=== PATIENT | female | born 1950 | race African-American/Black ===

== ENCOUNTER 2021-04-05 06:43 | Inpatient (IN) | payer MEDICARE ==
[~2021-04-05] VITALS: Ht 180.3 cm; Wt 84.2 kg
[2021-04-05 06:46] VITALS: BP 155/72
[2021-04-05 08:02] LABS: ABSOLUTE NEUTROPHILS 6.1 thou/uL (1.4-8.2); BASOPHILS 0.2 % (0.0-2.0); HEMATOCRIT 35.2 % (37.0-47.0); HEMOGLOBIN 11.8 gm/dL (12.0-15.0); LYMPHOCYTES 11.2 % (24.0-44.0); MCH 30.3 pg (26.0-34.0); MCHC 33.4 g/dL (28.0-37.0); MCV 90.7 fL (80.0-100.0); MONOCYTES 7.8 % (1.0-8.0); PLATELET COUNT 221 thou/uL (150-400); POLYS 80.8 % (36.0-66.0); RBC 3.88 mil/uL (4.20-5.00); RDW 13.7 % (10.5-14.5); WBC 7.5 thou/uL (4.0-11.0)
[2021-04-05 08:03] LABS: CALCIUM 8.7 mg/dL (8.5-10.1); CREATININE 2.2 mg/dL (0.6-1.0); POTASSIUM 3.8 mmol/L (3.5-5.1)
[2021-04-05 08:06] LABS: APTT 28.5 Seconds (24.5-32.8); PROTIME 10.9 Seconds (10.5-12.1)
[2021-04-05 08:16] LABS: ALBUMIN 2.8 g/dL (3.4-5.0); TOTAL BILIRUBIN 0.6 mg/dL (0.2-1.0); TOTAL PROTEIN 8.7 g/dL (6.4-8.2)
[2021-04-05 08:39] LABS: URINE BILIRUBIN NEGATIVE (Negative); URINE BLOOD 3+ (Negative); URINE CLARITY CLEAR; URINE COLOR YELLOW; URINE GLUCOSE-RANDOM* TRACE (Negative); URINE KETONES TRACE (Negative); URINE NITRITE-REFLEX NEGATIVE (Negative); URINE PROTEIN (DIPSTICK) 2+ (Negative); URINE SPECIFIC GRAVITY 1.025 (1.005-1.035); URINE UROBILINOGEN 0.2 E.U./dl (0.2-1.0)
[2021-04-05 08:41] LABS: URINE LEUKOCYTES-REFLEX 1+ (Negative)
[2021-04-05] MEDS ORDERED: JANUMET XR 50-1 EACH PO (08:46)
[2021-04-05] MEDS ORDERED: LANTUS SUBQ (08:46)
[2021-04-05] MEDS ORDERED: LOSARTAN-HCTZ1 EAC3 PO (08:47)
[2021-04-05] MEDS ORDERED: ZYRTEC10 M2 PO (08:48)
[2021-04-05] MEDS ORDERED: MELOXICAM15 MG PO (08:48)
[2021-04-05 08:54] LABS: SQUAMOUS 4-10 Moderate /LPF (0-3)
[2021-04-05 08:55] LABS: BACTERIA-REFLEX 1-9 Few /HPF (None Seen); CRYSTALS None Seen /LPF (None Seen); URINE RBC >20 Many /HPF (NONE SEEN); URINE WBC-REFLEX 6-15 Few /HPF (0-5)
[2021-04-05 11:11] VITALS: BP 140/77
[2021-04-05 11:36] VITALS: BP 161/94
[2021-04-05 12:01] VITALS: BP 159/79
--- NOTE | 2021-04-05 14:39 | NUR ---
WOUND CONSULT; THE PATIENT HAS FEET/LE'S THAT ARE OF CONCERN. THE PATIENT FEET ARE COOL, DRY AND HAVE S/S CONSISTANT WITH A POSSIBLE VASCULAR PROBLEMS. THE FEET ARE TENDER TO THE PATIENT. RECOMMENDATIONS; -CONSULT DR MAIN FOR A WOUND CARE EVALUATION. -USE DRY GAUZE/KERLIX FOR NOW. RN PRESENT.
[2021-04-05 15:32] VITALS: BP 137/57
[2021-04-05 19:33] VITALS: BP 135/66
--- NOTE | 2021-04-05 20:05 | NUR ---
PT ARRIVED VIA CART FROM ER. ADMISSION COMPLETED, CARE PLAN IN PLACE, AND INTERVENTIONS SET. WOUND CARE CONSULT PLACED, PICTURES TAKE OF ANKLES. PRATHO BOOTS ORDERED. POC WITH ACCU CHECK, 02 AT 2L, COVID POC. PT USES WHEEL CHAIR AT REHAB AND AT HOME.
[2021-04-06 00:12] VITALS: BP 123/53
[2021-04-06 05:09] VITALS: BP 145/87
[2021-04-06 05:21] LABS: ALBUMIN 2.6 g/dL (3.4-5.0); CALCIUM 8.4 mg/dL (8.5-10.1); CREATININE 2.3 mg/dL (0.6-1.0); DIRECT BILIRUBIN 0.2 mg/dL (<0.1-0.2); PHOSPHORUS 3.8 mg/dL (2.5-4.9); POTASSIUM 4.1 mmol/L (3.5-5.1); TOTAL BILIRUBIN 0.3 mg/dL (0.2-1.0); TOTAL PROTEIN 7.7 g/dL (6.4-8.2)
[2021-04-06 08:04] VITALS: BP 134/59
[2021-04-06 15:08] LABS: GLOBULIN TOTAL 5.3 g/dL (2.2-3.9); M-SPIKE Not Observed g/dL (Not Observed)
--- NOTE | 2021-04-06 15:37 | NUR ---
INITIAL ASSESSMENT: Received consult. Reviewed chart and spoke with nursing and attending physician. Pt was admitted from [facility] due to COVID. Pt placed in Enhanced Isolation. Pt has not received a COVID vaccination. Pt is afebrile and on 2L of O2. Pt is on IV abx and IV steroids. YESENIA placed call to pt's room. No answer. YESENIA spoke with pt's dtr, Lizz, via phone. Introduced role of YESENIA. Pt is currently in LTC at [facility]. Pt was hospitalized 2 months ago and then sent to [facility] as skilled. Pt has transitioned to LTC. Pt's dtr is interested in having pt go home with her upon discharge if she is able to d/c home with HH. PT/OT evals ordered to determine discharge needs. Pt was living at home prior to her hospitalization earlier this year. Pt's PCP is Dr. Oliva Dempsey at the [facility]. Pt has not been ambulatory since being at [facility]. YESENIA faxed info to [facility] post acute liaison for review. YESENIA is following to assist as needed with discharge planning.
[2021-04-06 15:38] VITALS: BP 129/74
--- NOTE | 2021-04-06 19:09 | NUR ---
ASSUMED PATIENT CARE AT 0700. ALERT. TOLERATED ON RA. VSS. POOR APPATITE. NOT TOWARDS POC GOALS.
[2021-04-06 20:24] VITALS: BP 131/70
--- NOTE | 2021-04-07 00:09 | NUR ---
PT ALERT AND ORIENTED X1. CONFUSED . FOLLOWS SOME COMMANDS. MAINLY QUIET. VSS. INC OF URINE IN LG AMTS. ZGARD APPLIED. PT NONCOMLIANT WITH LEAVING EXTERNAL CATHETER INTACT. PT ASSISTS NS WITH TURNING RIGHT AND LEFT IN BED. BED DOWN . CALL LIGHT IN REACH. BED ALARM IS ON. NO S/S DISTRESSON RA PRESENTLY.
[2021-04-07 04:17] VITALS: BP 119/69
[2021-04-07 05:16] LABS: ALBUMIN 2.7 g/dL (3.4-5.0); CALCIUM 8.7 mg/dL (8.5-10.1); CREATININE 2.3 mg/dL (0.6-1.0); PHOSPHORUS 4.7 mg/dL (2.5-4.9); POTASSIUM 4.5 mmol/L (3.5-5.1)
--- NOTE | 2021-04-07 06:32 | NUR ---
PT RESTING QUIETLY. NO C/O PAIN. NO S/S DISTRESS. THIS AM SAT WAS 90% ON RA. PT WAS PLACED ON 2LNC. ZGARD APLLIED TO PERIAND BUTTOCKS. PT INC OF URINEIN LG AMTS.
[2021-04-07 07:26] VITALS: BP 147/66
--- NOTE | 2021-04-07 09:25 | HC ---
[facility] [place] [address] [place] [address] CONSULTATION Name: MARCELO MURPHY Room #: 358-P ADM IN M.R.#: [id number] Admission: 04/05/21 Attend Phys: Tristan Fragoso Discharge: Date of : 54 Report #: [id number] THIS REPORT FOR: cc: Sukumar Gonsalez MD, Shyam MD Barry, Joseph W. MD ~ DATE OF SERVICE: 04/05/2021 INFECTIOUS DISEASE CONSULTATION ATTENDING PHYSICIAN: Dr. Fragoso. REASON FOR EVALUATION: COVID-19 infection, complicated by pneumonitis, respiratory failure. HISTORY OF PRESENT ILLNESS: Chart reviewed. The patient examined. This is a 70-year-old woman with diabetes mellitus, hypertension, who was transferred from facility and had been hospitalized, was there for rehabilitation, was found to have a positive COVID test. She became more dyspneic with a cough productive of whitish sputum. Noted also apparently had an episode of coffee-ground emesis earlier in the day. Chest x-ray noted bilateral infiltrates. Urinalysis did show moderate pyuria, so empirically started on therapy with levofloxacin. ALLERGIES: None known. CURRENT MEDICATIONS: Include insulin, Klor-Con, dexamethasone, enoxaparin, Levaquin, famotidine, ondansetron. PAST MEDICAL HISTORY: Includes diabetes mellitus, hypertension, has lower extremity venous stasis insufficiency complicated by ulcers due to peripheral vascular disease as well, chronic renal insufficiency, anemia, arthritis, sleep apnea. SOCIAL HISTORY: Nonsmoker, no ethanol, no illicit drug use. FAMILY HISTORY: Noncontributory. REVIEW OF SYSTEMS: Otherwise, unremarkable. PHYSICAL EXAMINATION: GENERAL: She appears chronically ill. She is mildly confused, in moderate distress. VITAL SIGNS: Temperature 98.9, pulse 97, respirations 20, blood pressure 159/79. SKIN: Warm, dry, no rashes. HEENT: Normocephalic. Extraocular muscles intact. Face hirsute. [address] [address] CONSULTATION Name: MARCELO MURPHY Room #: 358-[facility] IN M.R.#: [id number] Admission: 04/05/21 Attend Phys: Tristan Fragoso Discharge: Date of : 54 Report #: [id number] NECK: Supple. Nasal cannula in place. LUNGS: Scattered coarse breath sounds. HEART: Borderline tachycardic, regular with some ectopy. I do not appreciate a murmur. ABDOMEN: Mildly distended, somewhat firm, nontender. EXTREMITIES: No cyanosis. GENITOURINARY AND RECTAL: Deferred. LABORATORY DATA: Urinalysis as described above, 6-15 white cells. Electrolytes: Sodium 146, potassium 3.8, chloride 105, bicarbonate is 25, anion gap of 16, BUN and creatinine 62 and 2.2, glucose of 305. AST 42, ALT of 31, albumin of 2.8, total protein of 8.7. CBC: White count of 7.5, H and H of 11.8 and 35.2, platelets of 221. Chest x-ray as described above. ASSESSMENT AND PLAN: 1. COVID-19 infection, complicated by pneumonitis, respiratory failure. 2. Diabetes mellitus. 3. Hypertension. 4. Obstructive sleep apnea. 5. Anemia. 6. Venous stasis insufficiency. PLAN: We will continue empiric therapy with Levaquin, would be concerned about secondary bacterial pneumonitis. We will dose with remdesivir. We will have to follow her kidney function, remains quite tenuous at this point. Continue to monitor expectantly. We would not be surprised if clinically worsens and requires increasing oxygen supplementation. Additionally, has probably UTI. Hopefully, it would be covered by the Levaquin. Again, if she would show evidence of sepsis, we will add additional gram-negative coverage and continue wound care as prescribed. Check arterial Dopplers to exclude arterial issues. <ELECTRONICALLY SIGNED> By: Jani Vidal MD 04/07/21 0925 [id number] Jani Viadl MD /nt
[2021-04-07] MEDS ORDERED: LEVOFLOXACIN500 MG PO (10:49)
[2021-04-07] MEDS ORDERED: PREDNISONE 20 M20 MG PO (10:50)
--- NOTE | 2021-04-07 14:09 | NUR ---
YESENIA reviewed chart and spoke with nursing and attending physician. Discharge orders written for pt to return to [facility]. SW explained that pt's dtr was wanting to take her home. Awaiting PT/OT jimmy. YESENIA requested attending physician to contact pt's dtr to discuss discharge plan. YESENIA spoke with pt's dtr, Leonarda, via phone. Leonarda has not received a call from attending physician at this time. YESENIA discussed that pt is medically stable for discharge. Pt is afebrile and on 3L of O2. Pt is on IV abx and IV steroids. Pt's dtr states she does not want pt to return to [facility]. SW discussed alternate SNF options and also home with HH. Pt's COVID test was done on 04/04. Pt will need to remain in isolation. Pt's dtr states she is concerned about pt returning home at this time. Pt's dtr requests referral to be sent to [facility] for review. YESENIA faxed referral and notified Elodia[facility] in [facility] YESENIA is following to assist as needed with discharge planning.
[2021-04-07 15:30] VITALS: BP 141/67
--- NOTE | 2021-04-07 19:15 | NUR ---
ASSUMED PATIENT CARE AT 0700. A/0 X2. NEED 4L/NC. POOR APPATITE. NOT TOWARDS POC GOALS.
[2021-04-07 19:36] VITALS: BP 148/69
--- NOTE | 2021-04-08 00:03 | NUR ---
PT RESTING QUIETLY. TYLENOL GIVEN EARLIER FOR C/O LE PAIN. VSS AFEBRILE. ZARD APLLIED TO BUTTOCKS. SHEIS INC OF URINE IN LG AMTS.. BED DOWN. CALL LIGHT IN REACH. BED ALARM IS ON.
[2021-04-08 04:26] VITALS: BP 149/73
--- NOTE | 2021-04-08 06:08 | NUR ---
PT RESTING QUIETLY AFTER TYLENOL AND ZOFRAN. NO S/S DISTRESS.
[2021-04-08 06:49] LABS: ALBUMIN 2.5 g/dL (3.4-5.0); CALCIUM 8.8 mg/dL (8.5-10.1); CREATININE 2.2 mg/dL (0.6-1.0); DIRECT BILIRUBIN 0.1 mg/dL (<0.1-0.2); PHOSPHORUS 4.9 mg/dL (2.5-4.9); POTASSIUM 4.1 mmol/L (3.5-5.1); TOTAL BILIRUBIN 0.4 mg/dL (0.2-1.0); TOTAL PROTEIN 8.1 g/dL (6.4-8.2)
[2021-04-08 07:05] VITALS: BP 129/106
[2021-04-08 15:03] VITALS: BP 120/54
--- NOTE | 2021-04-08 16:41 | NUR ---
PT UP I THE CHAIR MOST OF THE DAY, CONTINUE TO BE ON 4L OF OXYGEN, SOB WITH EXERTION. CONFUSED BUT PLEASANT AND NOT IMPULSIVE. INCONTINENT CHANGED NEEDED. ANTICITPATING FOR D/C AFTER THE WEEKEND.
[2021-04-08 20:05] VITALS: BP 104/63
[2021-04-09 03:48] VITALS: BP 124/61
[2021-04-09 05:22] LABS: ALBUMIN 2.5 g/dL (3.4-5.0); CALCIUM 8.9 mg/dL (8.5-10.1); CREATININE 2.1 mg/dL (0.6-1.0); DIRECT BILIRUBIN 0.1 mg/dL (<0.1-0.2); POTASSIUM 4.2 mmol/L (3.5-5.1); TOTAL BILIRUBIN 0.4 mg/dL (0.2-1.0)
--- NOTE | 2021-04-09 05:34 | NUR ---
increased oxygen to 10 liters n/c. she needed some antiemetic this am. she is now calm and nausea is under control. denies pain.
[2021-04-09 07:21] VITALS: BP 112/61
[2021-04-09 11:28] LABS: HEMATOCRIT 36.4 % (37.0-47.0); HEMOGLOBIN 11.7 gm/dL (12.0-15.0); MCH 29.3 pg (26.0-34.0); MCHC 32.3 g/dL (28.0-37.0); MCV 90.7 fL (80.0-100.0); PLATELET COUNT 338 thou/uL (150-400); RBC 4.01 mil/uL (4.20-5.00); RDW 13.8 % (10.5-14.5)
[2021-04-09 12:50] LABS: ABSOLUTE NEUTROPHILS 8.4 thou/uL (1.4-8.2); ATYPICAL LYMPHS 1 %; METAMYELOCYTES 3 %
[2021-04-09 12:52] LABS: ANISOCYTOSIS 1+
[2021-04-09 16:10] VITALS: BP 114/82
--- NOTE | 2021-04-09 16:44 | NUR ---
PT WAS UP IN THE CHAIR FOR ABOUT 4 HOURS TODAY. BACK IN BED. CONTINUE TO BE ON 10L OF OXYGEN, SOB WITH EXERTION. INCONTINENT OF BOWEL AND URINE. REPOSITION EVERY 2 HOURS AND NEEDED. BED CHANGED. FALL AND ENHANCED PREC. IN PLACE.
[2021-04-09 21:14] VITALS: BP 108/67
--- NOTE | 2021-04-09 22:57 | NUR ---
PT PROGRESSING SLOWLY TOWRDS D/C GOALS. VSS AFEBRILE. SATS WNL ON 10LNC. CXAY SHOWED SLIGHT INPROVEMENT. PT RESTING QUIETLY AFTER AMBIEN AN2 TYLENOL GIVEN AT HS FOR C/O BACKAND LE PAIN. DRESSINGS INTACT TO LES.BOOTS ON. ZGARD TO BOTTOM. WILL CONTINUE TO MONITOR PT FOR CHANGES.
[2021-04-10 04:10] VITALS: BP 121/68
[2021-04-10 04:12] LABS: ALBUMIN 2.2 g/dL (3.4-5.0); CALCIUM 8.4 mg/dL (8.5-10.1); CREATININE 2.1 mg/dL (0.6-1.0); PHOSPHORUS 4.9 mg/dL (2.5-4.9); POTASSIUM 3.9 mmol/L (3.5-5.1)
--- NOTE | 2021-04-10 04:42 | NUR ---
PT RESTING QUIETLY THIS AM . NO C/O PAIN THIS MORNING/ SATS WNL ON 10LNC. VSS.
[2021-04-10 07:39] VITALS: BP 119/61
[2021-04-10 15:24] VITALS: BP 120/100
--- NOTE | 2021-04-10 15:45 | NUR ---
YESENIA reviewed chart and spoke with nursing and attending physician. Pt remains in Enhanced Isolation due to COVID. Pt is afebrile and on 10L of O2. Pt is on IV abx and IV steroids. YESENIA faxed clinical and therapy updates to [facility] for review. YESENIA spoke with Elodia in admissions at [facility], who states they are able to accept pt. Pt's dtr will need to meet with the business office to discuss possible copay. Pt may not have a copay depending on submission of hospital bill. YESENIA spoke with pt's dtr, Mariah, via phone to provide update. Pt's dtr is agreeable with discharge plan. YESENIA is following to assist as needed with discharge planning.
[2021-04-10 20:10] VITALS: BP 97/53
--- NOTE | 2021-04-10 22:01 | NUR ---
PT IS ALERT . PLEANTLY CONFUSED. C/O BACK PAIN. MEDICATED WITH 2 TYLENOL AND SLEEPING PILL GIVEN. SHE IS NOW SLEEPING. NO C/IO PAIN. VSS AFEBRLIE. SATS WNL ON 9LNC. BED DOWN. CALL LIGHT IN REACH. NO S/S DISTRESS.
[2021-04-11 03:39] VITALS: BP 138/68
--- NOTE | 2021-04-11 03:49 | NUR ---
PT PROGRESING TOWARDS D/C GOALS VSS AFEBRILE. SATS WNL ON 9LNC.NOC./O PAIN THIS MORNING . INC OF URINE IN LG AMTS. SKIN IS INTACT TO BUTTOCKS. LE DRESSINGS ARE INTACT CHANGED ON DAY SHIFT.
[2021-04-11 07:30] VITALS: BP 117/60
--- NOTE | 2021-04-11 15:58 | NUR ---
YESENIA reviewed chart and spoke with nursing and attending physician. Pt remains in Enhanced Isolation due to COVID. Pt is afebrile and requiring 8-10L of O2. Pt is on IV abx and IV steroids. YESENIA spoke with Elodia, in admissions at [facility] who confirms they are following and can accept pt when medically stable. Will need a new auto authorization from pt's insurance. [facility] requests O2 needs be at or below 10L. YESENIA is following to assist as needed with discharge planning.
[2021-04-11 16:29] VITALS: BP 121/52
[2021-04-11 20:17] VITALS: BP 131/57
[2021-04-12 05:00] VITALS: BP 138/58
--- NOTE | 2021-04-12 05:51 | NUR ---
PROGRESS PT ALERT TO SELF, SLEEPING AND NOT VERY RESPONSIVE AT START OF SHIFT BUT LATER SHE WAS TALKATIVE AND COOPERATIVE WITH STAFF. REMAINS ON 9 LITERS O2 HAS A DRY COUGH BUT NO SPUTUM NOTED. ACCUCHECKS AND SSI ADMINISTERED ORDERED. PT INCONTINENT SO PUREWICK IN PLACE AND WORKS WELL. BILATERAL FEET WRAPPED WITH GAUZE PEDAL PULSES WEAK. PT DENIES PAIN CONTINUE POC.
[2021-04-12 08:06] VITALS: BP 129/62
--- NOTE | 2021-04-12 15:42 | NUR ---
YESENIA reviewed chart and spoke with nursing and attending physician. Pt remains in Enhanced Isolation due to COVID. Pt is afebrile and on 8-9L of O2. YESENIA updated Elodia at [facility]. Clinical/therapy updates to be faxed for review tomorrow. YESENIA is following to assist as needed with discharge planning.
[2021-04-12 15:48] VITALS: BP 107/59
--- NOTE | 2021-04-12 18:26 | NUR ---
PT ALERT AND ORIENTED X 2. PT CONFUSED AT TIMES. PT COMPLAINS OF BACK PAIN AND HAS GOOD PAIN RELIEF WITH PRN ACETAMINOPHEN. PT INCONTINENT OF BOWELS AND URINE AND PULLS OUT PUREWICK FREQUENTLY. PT HAS PRODUCTIVE COUGH. PT UNINTERESTED IN FOOD BUT WILL DRINK GLUCERNA SUPPLEMENT. FREQUENTLY ASKS FOR ORANGE JUICE AND SODA, BUT GLUCOSE LEVELS ARE HIGH. ADJUSTED OXYGEN FROM 9 L TO 10 L NC DUE TO DESATING. PT REFUSES TO WEAR PRESSURE BOOTS.
[2021-04-12 19:36] VITALS: BP 111/62
[2021-04-13 05:10] VITALS: BP 125/71
[2021-04-13 05:11] LABS: ABSOLUTE NEUTROPHILS 13.7 thou/uL (1.4-8.2); BASOPHILS 0.3 % (0.0-2.0); EOSINOPHILS 0.7 % (0.0-3.0); HEMATOCRIT 32.9 % (37.0-47.0); HEMOGLOBIN 10.9 gm/dL (12.0-15.0); LYMPHOCYTES 9.1 % (24.0-44.0); MCH 30.4 pg (26.0-34.0); MCHC 33.3 g/dL (28.0-37.0); MCV 91.3 fL (80.0-100.0); MONOCYTES 6.3 % (1.0-8.0); PLATELET COUNT 335 thou/uL (150-400); POLYS 83.6 % (36.0-66.0); RDW 14.1 % (10.5-14.5); WBC 16.4 thou/uL (4.0-11.0)
[2021-04-13 05:26] LABS: ALBUMIN 2.2 g/dL (3.4-5.0); CALCIUM 8.3 mg/dL (8.5-10.1); CREATININE 1.6 mg/dL (0.6-1.0); POTASSIUM 4.4 mmol/L (3.5-5.1); TOTAL BILIRUBIN 0.4 mg/dL (0.2-1.0); TOTAL PROTEIN 6.7 g/dL (6.4-8.2)
[2021-04-13 07:46] VITALS: BP 114/63
--- NOTE | 2021-04-13 08:07 | NUR ---
PT NON COMPLIANT BEHAVIOR IS HINDERING PROGRESS TO DC. PT WILL REMOVE OXYGEN MULTIPLE TIMES THROUGH SHIFT. RECOVERY TIMES INCREASING TO GET ABOVE 90% ON 02. RT HAD TO PLACE PT ON NRB MASK THIS AM. PT SHOULD DC WITH 02 NEEDS ARE BELOW 10l. HOURLY ROUNDING.
--- NOTE | 2021-04-13 08:50 | HC ---
[facility] [place] [place] [address] CONSULTATION Name: MARCELO MURPHY Room #: 358-P ADM IN M.R.#: [id number] Admission: 04/05/21 Attend Phys: Tristan Fragoso Discharge: Date of : 54 Report #: [id number] THIS REPORT FOR: cc: Sukumar Gonsalez MD, Shyam MD Stephens, Thad A. MD ~ DATE OF SERVICE: 04/06/2021 WOUND CARE CONSULTATION PERSONAL PHYSICIAN: Non staff. CHIEF COMPLAINT: Foot and toe ulcers. HISTORY OF PRESENT ILLNESS: This is a 70-year-old black female who presents from a nursing facility after she was diagnosed with COVID pneumonia, was having nausea and vomiting. The patient on admission was noted to have ulcerations on bilateral feet and toes. The patient herself is unable to give any history due to confusion. The patient is unsure how long she has had these ulcerations on her feet. The patient denies any actual pain associated with the ulcerations. Nursing staff deny any other associated wounds. PAST MEDICAL HISTORY: Per records significant for type 2 diabetes, chronic kidney disease, hypertension, cognitive defect, sleep apnea, anemia. CURRENT MEDICATIONS: Multiple, I reviewed the patient's medication list. DRUG ALLERGIES: None. SOCIAL HISTORY: The patient resides in a long-term care facility. FAMILY HISTORY AND REVIEW OF SYSTEMS Unobtainable because of the patient's confusion. PHYSICAL EXAMINATION: VITAL SIGNS: Temperature 36.4, pulse 80, respirations 20, BP 147/66. GENERAL: This is an awake, but not oriented black female who is in mild distress secondary to respiratory effort. HEENT: Normocephalic, atraumatic. Mucous membranes are somewhat dry. Pupils are round. Sclerae white. NECK: Without JVD. LUNGS: Diminished breath sounds heard throughout with wheezing. HEART: Regular. ABDOMEN: Soft, nontender. EXTREMITIES: The patient moves all extremities without difficulty. The patient has 1+ edema bilateral lower extremities. There is 1+ dorsalis pedis and [facility] [address] [place] [address] CONSULTATION Name: MARCELO MURPHY Room #: 358-P ADM IN M.R.#: [id number] Admission: 04/05/21 Attend Phys: Tristan Fragoso Discharge: Date of : 54 Report #: [id number] posterior tibial pulses on the dorsal aspect, both feet are yellowish crusty lesions consistent with dry eschar. There are no signs of actual erythema or warmth. There is no weeping. Bilateral heels are intact. NEUROLOGIC: Cranial nerves 2-12 grossly intact. Motor and sensory are grossly intact. LABORATORY DATA: Arterial Doppler performed in the Emergency Department showed no signs of any obvious stenosis. White count 7.5, hemoglobin 11.8, BUN 89, creatinine 2.3, albumin 2.7. IMPRESSION: 1. Vascular ulcers to bilateral feet and toes. 2. COVID pneumonia. 3. Diabetes mellitus. 4. Generalized debility. 5. Protein calorie malnutrition -- severe with albumin __. PLAN: At this time, we will start with Betadine daily, both foot and toes covered with ABD and Kerlix. Infectious Disease following the patient for the COVID pneumonia. We will attempt a physical and occupational therapy the patient is able. We will maximize the patient's oral protein supplementation to help with healing. We will continue all other current medications. <ELECTRONICALLY SIGNED> By: Mitchell Puentes MD 04/13/21 0850 [id number] Mitchell Puentes MD /nt
--- NOTE | 2021-04-13 15:21 | NUR ---
YESENIA reviewed chart and spoke with nursing and attending physician. Pt remains in Enhanced Isolation due to COVID. Pt is afebrile and was placed on 15L via NRB mask this morning. Pulmonology consulted today. YESENIA faxed clinical/therapy updates to [facility] for review. YESENIA updated Elodia, in admissions. YESENIA spoke with pt's dtr, Leonarda, via phone to provide update. YESENIA is following to assist as needed with discharge planning.
[2021-04-13 16:08] VITALS: BP 123/50
[2021-04-13 21:00] VITALS: BP 130/59
[2021-04-14 04:07] VITALS: BP 103/64
--- NOTE | 2021-04-14 04:43 | NUR ---
increased oxygen through the night to 85% / 50 liters. denies pain. she urinates in the bed, needs frequent checks.
[2021-04-14 04:49] LABS: HEMOGLOBIN 10.5 gm/dL (12.0-15.0); MCHC 32.9 g/dL (28.0-37.0); MCV 91.2 fL (80.0-100.0); RBC 3.52 mil/uL (4.20-5.00); RDW 14.1 % (10.5-14.5); WBC 15.5 thou/uL (4.0-11.0)
[2021-04-14 05:16] LABS: CALCIUM 8.1 mg/dL (8.5-10.1); CREATININE 1.5 mg/dL (0.6-1.0); POTASSIUM 4.1 mmol/L (3.5-5.1)
[2021-04-14 07:17] VITALS: BP 101/52
--- NOTE | 2021-04-14 14:27 | NUR ---
YESENIA reviewed chart and spoke with nursing and attending physician. Pt remains in Enhanced Isolation due to COVID. Pt is afebrile and is requiring optiflow. No weekend discharge planned. YESENIA updated Elodia at [facility] who is following for SNF admission when pt is medically stable. SW to fax clinical/therapy updates to [facility] for review on Saturday. YESENIA is following to assist as needed with discharge planning.
[2021-04-14 16:06] VITALS: BP 129/78
[2021-04-14 19:30] VITALS: BP 134/69
--- NOTE | 2021-04-15 03:29 | NUR ---
pt wearing bipap tonight at 80%. she is more mentally alert than she has been days earlier. resting quietly. needs encouraging to use the bedpan. she is aware of when it is time to urinate. but does not often call for assist. she continues on bedrest.
[2021-04-15 04:40] VITALS: BP 126/62
[2021-04-15 07:42] VITALS: BP 129/68
[2021-04-15 15:20] VITALS: BP 119/63
--- NOTE | 2021-04-15 17:23 | NUR ---
assumed care of pt at 0700. pt aox4 mild resp distress. 70% fio2 on optiflow. incointinent of urine. good appetite. complete bed bath given. voicing no particular concerns. slow progress tward poc goals.
[2021-04-15 20:00] VITALS: BP 138/77
--- NOTE | 2021-04-15 22:47 | NUR ---
PT ALERT AND ORIENTED X4 TODAY. FOLLOWS COMMANDS, SATS WNL ON 90% FIO2. RT TITRATED DON TO 83% FIO2 SAT 93%. LUNGS SOND ARE DIMINISHED BUT UNLABORED ON OPTIFLO PRESENTLY. C/O BACK PAIN. MEDICATED WITH 2 TYLENOL AND SLEEPING PILL GIVEN. PT RESTING QUIETLY PRESENTLY NO S/S DISTRESS.
[2021-04-16 04:45] VITALS: BP 141/87
[2021-04-16 06:09] LABS: HEMATOCRIT 32.6 % (37.0-47.0); HEMOGLOBIN 10.7 gm/dL (12.0-15.0); MCH 29.7 pg (26.0-34.0); MCHC 32.9 g/dL (28.0-37.0); MCV 90.3 fL (80.0-100.0); RBC 3.61 mil/uL (4.20-5.00); RDW 13.6 % (10.5-14.5); WBC 13.1 thou/uL (4.0-11.0)
[2021-04-16 06:11] LABS: CALCIUM 8.2 mg/dL (8.5-10.1); CREATININE 1.3 mg/dL (0.6-1.0)
[2021-04-16 07:27] VITALS: BP 120/74
[2021-04-16 21:23] VITALS: BP 115/70
--- NOTE | 2021-04-17 00:27 | NUR ---
PT ALERT AND ORIENTED X4. VSS AFEBRILE. PT ON OPTIFLO 93%FIO2 AND 35LF. NO S/S SOA PRESENTLY. RESPIRATIONS UNLABORED. PT INC OF URINE AND STOOL. BLOOD NOTED ON CHUCKS. STOOL FOR OB SENT. HG DRAWN. WILL CALL FOR GI CONSULT IN AM ORDERED BY BENCH WORKER BINDING. HELD LOVENOX DOSE. PRESNETLY NO BLEEDING NOTED IN BED. PT RESTING QUIETLY SLEEPING AFTER AMBIEN AND TYLENOL GIVEN FOR BACK PAIN. ZGARD APPLIED TO BUTTOCKS. LE DRESSINGS REMAIN CLEAN DRY AND INTACT CHANGED BY DAY SHIFT NS.
[2021-04-17 05:24] VITALS: BP 126/75
--- NOTE | 2021-04-17 06:55 | NUR ---
PT CONFUSED THIS AM. PULED OFFLINENS, GOWN, OPTIFLO ETC. PT INC OF URINE THIS AM IN LG AMTS. NO BLOOD NOTED THIS AM. STOOL FOR OB STILL PENDING. PT NPO. INFORMED PROGRAM DIRECTOR/MORNING SHOW HOST TO PLACE GI CONSULT. PT RESTING QUIETLY. NO S/S DISTRESS PRESENTLY ON OPTIFLOW 35% LF AND FIO2 80%.
[2021-04-17 08:12] VITALS: BP 102/66
--- NOTE | 2021-04-17 15:08 | NUR ---
SW reviewed chart and spoke with nursing and attending physician. Pt remains in Enhanced Isolation due to COVID. Pt is afebrile and requiring optiflow. SW updated Elodia, in admissions at [facility]. Clinical and therapy updates to be faxed tomorrow for review. YESENIA is following to assist as needed with discharge planning.
[2021-04-17 15:34] VITALS: BP 122/61
--- NOTE | 2021-04-17 17:59 | NUR ---
ASSUMED PATIENT CARE AT 0700.A/0 X3. ON OPTIFLOW 35L/100%. TOLERATED WELL. GOOD APPATITE TODAY. DRESSING CHANGED PER WOUND CARE NURSE, SLOWLY TOWARDS POC GOALS.
[2021-04-17 20:50] VITALS: BP 132/91
[2021-04-18 03:05] VITALS: BP 124/79
--- NOTE | 2021-04-18 06:24 | NUR ---
Pt. sitting up on bed at beginning of shift. O2 sat in the upper 90's on Optiflow at 35L/80% . RT titrated O2 to keep O2 sat > 90%. She slept fair during the night. Able to help turn from side to side. Incont. of bladder and bowel. Z guard applied to buttocks after incontinence. Cont. on enhanced precaution , afebrile. Bed alarm on for safety.
[2021-04-18 07:46] VITALS: BP 114/68
--- NOTE | 2021-04-18 14:52 | NUR ---
YESENIA reviewed chart and spoke with nursing and attending physician. Pt remains in Enhanced Isolation due to COVID. Pt is afebrile and requiring optiflow. Pt is slowly progressing towards goals for discharge to post-acute care. YESENIA faxed clinical/therapy updates to [facility] for review. YESENIA updated Elodia in admissions. Anticipate pt will be ready to d/c next week when O2 requirements are down to 4-6L. YESENIA provided contact info for pt's dtr, Leonarda, to attending physician to call with an update. YESENIA is following to assist as needed with discharge planning.
[2021-04-18 16:13] VITALS: BP 119/97
--- NOTE | 2021-04-18 18:22 | NUR ---
assumed patient care at 0700. a/o x3. on 45l/60% optiflow tolerated well. progressing towards poc goals.
[2021-04-18 20:20] VITALS: BP 123/61
[2021-04-19 02:37] VITALS: BP 127/64
--- NOTE | 2021-04-19 04:05 | NUR ---
Pt. on Optiflow at HS at 45L/70% then BIPAP ( 12/6,RR 14,50% FIO2) while asleep. Cont. on enhanced precaution , afebrile. Incontinent of bladder and bowel. Repositioned prn.
[2021-04-19 07:55] VITALS: BP 111/50
[2021-04-19 17:08] VITALS: BP 121/75
[2021-04-19 19:15] VITALS: BP 123/71
[2021-04-20 03:25] VITALS: BP 113/64
--- NOTE | 2021-04-20 06:41 | NUR ---
Pt. on Optiflow at beginning of shift 30L/30% then BIPAP at HS at 35% FIO2 while asleep.Cont. on enhanced precaution ,afebrile.New IV placed on left AC. Incont of bladder , external cath in place. Repositioned prn for comfort. Making some progress towards care plan goals.
[2021-04-20 07:30] VITALS: BP 101/46
--- NOTE | 2021-04-20 07:30 | NUR ---
RT called this am per pt. request to be off BIPAP so she can sit up and drink her coffee. When RT arrived in room , he stated BIPAP mask is off of pt. and O2 sat in the 70's. RT titrated FIO2 to keep O2 sat up. Explained to pt. that she needs to stay on BIPAP to keep her O2 sat up. Day RN updated.
--- NOTE | 2021-04-20 14:08 | NUR ---
SW reviewed chart and spoke with nursing and attending physician. Pt remains in Enhanced Isolation due to COVID. Pt is afebrile and requiring bipap support. Pt is not progressing towards goals for discharge. [facility] is following and able to accept pt when medically stable. SW is following to assist as needed with discharge planning.
[2021-04-20 15:34] VITALS: BP 127/69
--- NOTE | 2021-04-20 17:21 | NUR ---
ASSUMED PATIENT CARE AT 0700. A/O X3. TITRATED 02 TO 5L/NC TOLERATED WELL. UP WITH ASSISTED TO CHAIR. DENIES PAIN. SLOWLY TOWARDS POC GOALS.
[2021-04-20 19:25] VITALS: BP 111/59
[2021-04-21 04:40] VITALS: BP 144/81
--- NOTE | 2021-04-21 05:09 | NUR ---
Up in the recliner chair at HS with O2 at 5L/NC. Requested to go back to bed and gotten up with assist and use of gait belt. Desat while getting up to go back to bed. Titrated O2 up to keep O2 sat up.RT notified and put her on BIPAP for the night at 50% . O2 sat in the mid 90's. She slept well during the night.Cont. on enhanced precaution, afebrile. Incont. of bm while up in the chair and incont. of bladder.External cath in place. Making some rpogress towards care plan goals.
[2021-04-21 07:41] VITALS: BP 105/59
--- NOTE | 2021-04-21 14:41 | NUR ---
YESENIA reviewed chart and spoke with nursing and attending physician. Pt remains in Enhanced Isolation due to COVID. Pt is afebrile and on 5L of O2. Pt does use the bipap at nighttime. Pt is on IV steroids. No weekend discharge planned. [facility] to [facility] is anticipated for Saturday/Saturday. YESENIA faxed updated clinical/therapy notes to [facility] for review. YESENIA confirmed with Elodia in admissions, that they are able to accept pt when she is ready for discharge. [facility] is able to order pt a bipap. YESENIA left voice message for pt's dtr, Leonarda, to provide update. YESENIA is following to assist as needed with discharge planning.
[2021-04-21 16:24] VITALS: BP 114/70
[2021-04-21 19:31] VITALS: BP 138/69
--- NOTE | 2021-04-21 22:21 | NUR ---
PT TRANSFERRED FROM CHAIR TO BED. TWO PERSON ASSIST. O2 PER NC. LUNGS DIMINISHED. PURWICK INTACT. BLE FEET DRESSINGS COMPLETED. PT PROVIDED HS SNACK.
[2021-04-22 03:20] VITALS: BP 123/76
[2021-04-22 08:06] VITALS: BP 99/52
[2021-04-22 15:43] VITALS: BP 104/56
[2021-04-22 20:00] VITALS: BP 110/53
--- NOTE | 2021-04-22 23:08 | NUR ---
PT SITTING IN BED WATCHING TV. O2 PER NC. PT REPORTING HAVING A VERY GOOD DAY. HS SNACK PROVIDED. PURWICK INTACT. BED ALARM ON. BILATERAL FEET DRESSINGS INTACT.
[2021-04-23 03:18] VITALS: BP 112/59
[2021-04-23 04:16] LABS: ABSOLUTE NEUTROPHILS 10.2 thou/uL (1.4-8.2); BASOPHILS 0.3 % (0.0-2.0); EOSINOPHILS 0.8 % (0.0-3.0); HEMATOCRIT 34.1 % (37.0-47.0); HEMOGLOBIN 11.2 gm/dL (12.0-15.0); LYMPHOCYTES 14.1 % (24.0-44.0); MCH 30.2 pg (26.0-34.0); MCV 91.5 fL (80.0-100.0); MONOCYTES 6.8 % (1.0-8.0); PLATELET COUNT 238 thou/uL (150-400); RBC 3.72 mil/uL (4.20-5.00); RDW 14.3 % (10.5-14.5); WBC 13.1 thou/uL (4.0-11.0)
[2021-04-23 04:49] LABS: ALBUMIN 2.3 g/dL (3.4-5.0); CALCIUM 8.6 mg/dL (8.5-10.1); CREATININE 1.4 mg/dL (0.6-1.0); MAGNESIUM 2.3 mg/dL (1.8-2.4); PHOSPHORUS 3.9 mg/dL (2.5-4.9); POTASSIUM 4.3 mmol/L (3.5-5.1); TOTAL BILIRUBIN 0.4 mg/dL (0.2-1.0); TOTAL PROTEIN 7.2 g/dL (6.4-8.2)
[2021-04-23 05:05] LABS: % SATURATION 29 % (20-39); IRON 56 ug/dL (50-170); TIBC 193 ug/dL (250-450)
[2021-04-23 05:09] LABS: FOLIC ACID 8.3 ng/mL (8.6-58.9)
[2021-04-23 07:17] VITALS: BP 109/66
[2021-04-23 15:51] VITALS: BP 114/62
--- NOTE | 2021-04-23 18:03 | NUR ---
ASSUMED PATIENT CARE AT 0700. A/O X4. 0N 3L/NC, NO DISDRESS NOTED. NO PAIN. PROGRESSING TOWARDS POC GOALS.
[2021-04-23 20:01] VITALS: BP 134/68
--- NOTE | 2021-04-24 05:47 | NUR ---
PT MAKING SLOW PROGRESS TOWARD GOALS. O2 AT 3L PER NC OVERNIGHT. PT DENIED ANY SOA WHILE AT REST. IN BED THROUGHOUT THE NIGHT.
[2021-04-24 06:06] VITALS: BP 128/72
[2021-04-24 07:40] VITALS: BP 132/69
--- NOTE | 2021-04-24 11:27 | NUR ---
DISCHARGE NOTE: YESENIA reviewed chart and spoke with nursing and attending physician. Pt is medically stable for discharge to [facility] today. YESENIA spoke with Elodia in admissions at [facility] to provide update. [facility] has received auto auth from pt's insurance, and can accept today. Wheelchair van transportation scheduled for 1400 per facility's arrangements. YESENIA updated attending physician to request discharge ppwk. Chart copy requested. Nursing provided with number to call report. YESENIA placed call to pt's room. No answer. YESENIA left voice message for pt's dtr, Leonarda, to provide update and to notify of discharge plan. SW is following to finalize discharge.
[2021-04-24] MEDS ORDERED: PROTONIX 20 MG20 M1 PO (12:18)
[2021-04-24] MEDS ORDERED: HUMALOG100 UNIT/1 SUBQ (12:18)
[2021-04-24] MEDS ORDERED: CALTRATE-600 W1 EACH PO (12:18)
[2021-04-24] MEDS ORDERED: LANTUS SUBQ (12:18)
[2021-04-24] MEDS ORDERED: MIRALAX17 GM PO (12:18)
[2021-04-24] MEDS ORDERED: TRADJENTA5 MG PO (12:18)
[2021-04-24] MEDS ORDERED: NITROGLYCERIN0.4 MG SUBLING (12:18)
[2021-04-24] MEDS ORDERED: LASIX 40 MG TAB40 M1 PO (12:18)
--- NOTE | 2021-04-24 14:08 | NUR ---
ASSUMED PATIENT CARE AT 0700. A/O X3 ON 3L/NC. PROGRESSING TOWARDS POC GOALS. DC TO SNF NOW.
== END 2021-04-24 14:07 | DRG 871 ==
LOC: ER 06:43 → 3W 09:15 → EROBS 09:15 → 3W 11:39
PROVIDERS: Emergency Medicine; Internal Medicine; Internal Medicine Pulmonary Disease; Specialist; ADMIT Hospitalist; ATTEND Hospitalist
PROC: XW033E5 Introduction of Remdesivir Anti-infective into Peripheral Vein, Percutaneous Approach, New Technology Group 5 (ICD-10-PCS; principal; 2021-04-05)
PROC: 5A0935A Assistance with Respiratory Ventilation, Less than 24 Consecutive Hours, High Flow/Velocity Cannula (ICD-10-PCS; 2021-04-12)
PROC: 5A0935A Assistance with Respiratory Ventilation, Less than 24 Consecutive Hours, High Flow/Velocity Cannula (ICD-10-PCS; 2021-04-13)
PROC: 5A0945A Assistance with Respiratory Ventilation, 24-96 Consecutive Hours, High Flow/Velocity Cannula (ICD-10-PCS; 2021-04-15)
PROC: 5A09357 Assistance with Respiratory Ventilation, Less than 24 Consecutive Hours, Continuous Positive Airway Pressure (ICD-10-PCS; 2021-04-19)
PROC: 5A0935A Assistance with Respiratory Ventilation, Less than 24 Consecutive Hours, High Flow/Velocity Cannula (ICD-10-PCS; 2021-04-19)
PROC: 5A09357 Assistance with Respiratory Ventilation, Less than 24 Consecutive Hours, Continuous Positive Airway Pressure (ICD-10-PCS; 2021-04-20)
PROC: 5A0935A Assistance with Respiratory Ventilation, Less than 24 Consecutive Hours, High Flow/Velocity Cannula (ICD-10-PCS; 2021-04-20)
PROC: 5A09357 Assistance with Respiratory Ventilation, Less than 24 Consecutive Hours, Continuous Positive Airway Pressure (ICD-10-PCS; 2021-04-22)
DX: A41.9 Sepsis, unspecified organism (principal); U07.1 COVID-19; J12.82 Pneumonia due to coronavirus disease 2019; E43 Unspecified severe protein-calorie malnutrition; I21.4 Non-ST elevation (NSTEMI) myocardial infarction; J69.0 Pneumonitis due to inhalation of food and vomit; J80 Acute respiratory distress syndrome; N39.0 Urinary tract infection, site not specified; N17.9 Acute kidney failure, unspecified; F10.139 Alcohol abuse with withdrawal, unspecified; K92.2 Gastrointestinal hemorrhage, unspecified; G93.40 Encephalopathy, unspecified; E11.51 Type 2 diabetes mellitus with diabetic peripheral angiopathy without gangrene; M19.90 Unspecified osteoarthritis, unspecified site; G47.33 Obstructive sleep apnea (adult) (pediatric); I87.2 Venous insufficiency (chronic) (peripheral); L97.529 Non-pressure chronic ulcer of other part of left foot with unspecified severity; I12.9 Hypertensive chronic kidney disease with stage 1 through stage 4 chronic kidney disease, or unspecified chronic kidney disease; L97.519 Non-pressure chronic ulcer of other part of right foot with unspecified severity; N18.30 Chronic kidney disease, stage 3 unspecified; E11.22 Type 2 diabetes mellitus with diabetic chronic kidney disease; I25.10 Atherosclerotic heart disease of native coronary artery without angina pectoris; R53.81 Other malaise; E66.01 Morbid (severe) obesity due to excess calories; D63.8 Anemia in other chronic diseases classified elsewhere; Z79.4 Long term (current) use of insulin; Z95.5 Presence of coronary angioplasty implant and graft; Z86.73 Personal history of transient ischemic attack (TIA), and cerebral infarction without residual deficits
CPT/HCPCS: 10879